=== PATIENT | male | born 1930 | race Caucasian/White ===

== ENCOUNTER 2018-02-09 10:14 | Outpatient (CLI) | payer MEDICARE ==
[2018-02-09 12:50] LABS: BASOPHILS % (AUTO) 0.5 %; EOSINOPHILS # (AUTO) 0.2 10^3/uL (0.0-0.7); EOSINOPHILS % (AUTO) 2.6 %; HGB - HEMOGLOBIN 14.6 g/dL (14.0-18.0); LYMPHOCYTES # (AUTO) 1.9 10^3/uL (1.5-3.5); LYMPHOCYTES % (AUTO) 24.3 %; MEAN CORPUSCULAR HEMOGLOBIN 30.9 pg (27.0-31.0); MEAN CORPUSCULAR VOLUME 93.4 fL (80.0-94.0); MEAN PLATELET VOLUME 8.5 fL (7.4-11.4); MONOCYTES # (AUTO) 0.7 10^3/uL (0.0-1.0); MONOCYTES % (AUTO) 8.9 %; NEUTROPHILS % (AUTO) 63.7 %; PLT - PLATELET COUNT 288 10^3/uL (130-450); RED BLOOD COUNT 4.74 10^6/uL (4.70-6.10); RED CELL DISTRIBUTION WIDTH 13.9 % (12.0-15.0); WHITE BLOOD COUNT 7.9 x10^3/uL (4.8-10.8)
[2018-02-09 13:16] LABS: ALBUMIN 4.2 g/dL (3.2-5.5); ALBUMIN/GLOBULIN RATIO 1.2 (1.0-2.2); ALKALINE PHOSPHATASE 54 IU/L (42-121); ALT ALANINE AMINOTRANSFERASE 20 IU/L (10-60); AST ASPARTATE AMINOTRANSFERASE 24 IU/L (10-42); BILIRUBIN,TOTAL 0.8 mg/dL (0.2-1.0); BUN - BLOOD UREA NITROGEN 15 mg/dL (6-20); CARBON DIOXIDE - CO2 28 mmol/L (21-32); CHLORIDE 98 mmol/L (101-111); CHOL/HDL RATIO 5.1 (<5.0); CHOLESTEROL 215 mg/dL; CREATININE 0.9 mg/dL (0.6-1.2); GFR - MDRD 80 (>89); GLUCOSE 93 mg/dL (70-100); HDL CHOLESTEROL 42 mg/dL; LDL CHOLESTEROL,CALCULATED 152 mg/dL; LDL/HDL RATIO 3.6 (<3.6); SODIUM 134 mmol/L (135-145); TOTAL PROTEIN 7.6 g/dL (6.7-8.2); VLDL CHOLESTEROL 21 mg/dL
== END 2018-02-09 10:15 | disposition home or self-care (01) ==
LOC: LAB.WCP 10:14
PROVIDERS: ATTEND Family Medicine
DX: I10 Essential (primary) hypertension (principal); E78.5 Hyperlipidemia, unspecified
CPT/HCPCS: 36415; 80053; 80061; 83721; 85025

== ENCOUNTER 2018-07-15 09:16 | Outpatient (CLI) | payer MEDICARE | END 2018-07-15 09:17 | disposition critical access hospital (66) | LOC: EMS 09:16 | PROVIDERS: ATTEND Surgery | DX: R42 Dizziness and giddiness (principal) | CPT/HCPCS: A0425; A0427 ==

== ENCOUNTER 2018-07-15 09:46 | Emergency (ER) | payer MEDICARE ==
--- NOTE | 2018-07-15 10:00 | ED Physician Documentation ---
History of Present Illness - Stated complaint Stated Complaint: DIZZY - History obtained from History obtained from: Patient, Family, EMS - History of Present Illness Timing: Enter time (399), Today - Additonal information Additional information: 88 year old male was in his usual state of health when he went to bed last night. He awoke at 4:00 in the morning to go to the bathroom and felt extremely dizzy. He felt out of sorts when he arrived back to his bed as well he is noted his blood pressure to be markedly elevated today he is come to the emergency department for evaluation. He did come in by ambulance. Review of Systems Constitutional: denies: Fever Eyes: denies: Decreased vision Ears: denies: Ear pain Nose: denies: Rhinorrhea / runny nose, Congestion Throat: denies: Sore throat Cardiac: denies: Chest pain / pressure, Palpitations Respiratory: denies: Dyspnea, Cough GI: denies: Abdominal Pain, Nausea, Vomiting : denies: Dysuria, Frequency Skin: denies: Rash, Lesions Musculoskeletal: denies: Neck pain, Back pain, Extremity pain Neurologic: reports: Near syncope, Headache. denies: Generalized weakness, Focal weakness, Numbness, Difficulty speaking, Head injury, LOC PD PAST MEDICAL HISTORY - Present Medications Home Medications: Ambulatory Orders Medication Instructions Recorded Confirmed Aspirin [Adult Aspirin] 81 mg PO DAILY PM 07/15/18 07/15/18 Atenolol 25 mg PO DAILY PM 07/15/18 07/15/18 Atenolol [Atenolol] 50 mg PO DAILY 07/15/18 07/15/18 Meclizine HCl 25 mg PO Q6HR PRN #20 tab.chew 07/15/18 Simvastatin [Simvastatin] 10 mg PO DAILY PM 07/15/18 07/15/18 amLODIPine [Norvasc] 2.5 mg PO DAILY 07/15/18 07/15/18 - Allergies Allergies/Adverse Reactions: Allergies Allergy/AdvReac Type Severity Reaction Status Date / Time No Known Drug Allergies Allergy Verified 07/15/18 11:04 PD ED PE NORMAL - Vitals Vital signs reviewed: Yes - General General: Alert and oriented X 3, No acute distress, Well developed/nourished - HEENT HEENT: Atraumatic, PERRL, EOMI, Ears normal, Other (dry mucous membranes 2 beats of nystagmus to the left only ) - Neck Neck: Supple, no meningeal sign, No bony TTP - Cardiac Cardiac: RRR, No murmur - Respiratory Respiratory: No respiratory distress, Clear bilaterally - Abdomen Abdomen: Soft, Non tender - Back Back: No CVA TTP, No spinal TTP - Derm Derm: Normal color, Warm and dry, No rash - Extremities Extremities: No deformity, No edema - Neuro Neuro: Alert and oriented X 3, title curator 2-12 intact, No motor deficit, No sensory deficit, Normal speech Eye Opening: Spontaneous Motor: Obeys Commands Verbal: Oriented GCS Score: 15 - Psych Psych: Normal mood, Normal affect Results - Vitals Vitals: Vital Signs - 24 hr 07/15/18 07/15/18 10:00 12:16 Temperature 36.4 C L Heart Rate 54 L 61 Respiratory 16 20 Rate Blood Pressure 102/90 H 192/84 H O2 Saturation 96 98 Oxygen O2 Source Room air - EKG (time done) 1005 Rate: Rate (enter#) (55) Rhythm: NSR Ischemia: Q waves (inferior) Compare to prior EKG: Old EKG unavailable Computer interpretation: Agree with computer - Labs Labs: Laboratory Tests 07/15/18 07/15/18 07/15/18 10:14 10:14 10:14 WBC 8.2 RBC 4.48 L Hgb 13.8 L Hct 41.7 L MCV 93.1 MCH 30.8 MCHC 33.1 RDW 13.7 Plt Count 240 MPV 8.0 Neut # (Auto) 6.0 Lymph # (Auto) 1.5 [place] # (Auto) 0.5 Eos # (Auto) 0.2 Baso # (Auto) 0.1 Absolute Nucleated RBC 0.00 Nucleated RBC % 0.0 Sodium 138 Potassium 4.3 Chloride 102 Carbon Dioxide 28 Anion Gap 8.0 BUN 10 Creatinine 0.9 Estimated GFR (MDRD) 80 L Glucose 106 H Calcium 9.1 Total Bilirubin 1.0 AST 20 ALT 14 Alkaline Phosphatase 60 Troponin I < 0.04 Total Protein 7.3 Albumin 4.0 Globulin 3.3 Albumin/Globulin Ratio 1.2 Lipase 31 Urine Color Urine Clarity Urine pH Ur Specific [place] Urine Protein Urine Glucose (UA) Urine Ketones Urine Occult Blood Urine Nitrite Urine Bilirubin Urine Urobilinogen Ur Leukocyte Esterase Ur Microscopic Review Urine Culture Comments 07/15/18 10:20 WBC RBC Hgb Hct MCV MCH MCHC RDW Plt Count MPV Neut # (Auto) Lymph # (Auto) [place] # (Auto) Eos # (Auto) Baso # (Auto) Absolute Nucleated RBC Nucleated RBC % Sodium Potassium Chloride Carbon Dioxide Anion Gap BUN Creatinine Estimated GFR (MDRD) Glucose Calcium Total Bilirubin AST ALT Alkaline Phosphatase Troponin I Total Protein Albumin Globulin Albumin/Globulin Ratio Lipase Urine Color YELLOW Urine Clarity CLEAR Urine pH 7.5 Ur Specific [place] 1.010 Urine Protein NEGATIVE Urine Glucose (UA) NEGATIVE Urine Ketones NEGATIVE Urine Occult Blood TRACE-INTA Urine Nitrite NEGATIVE Urine Bilirubin NEGATIVE Urine Urobilinogen 0.2 (NORMAL) Ur Leukocyte Esterase NEGATIVE Ur Microscopic Review NOT INDICATED Urine Culture Comments NOT INDICATED Procedures - IVC sono (time) 0955 Bedside IVC sono: IVC measures (cm) (1.19), IVC collapsed c insp (cm) (complete) 1235 Bedside IVC sono: IVC measures (cm) (1.44), IVC collapsed c insp (cm) (complete) , Dehydration (after one liter a deficit remains) PD MEDICAL DECISION MAKING - ED course Complexity details: reviewed results, re-evaluated patient, considered differential, d/w patient, d/w family ED course: 88-year-old male with acute dizziness is found to be dehydrated. He is administered a liter of saline and he continues to have a deficit and symptoms and he is administered a second liter of saline. - Sepsis Event Vital Signs: Vital Signs - 24 hr 07/15/18 07/15/18 10:00 12:16 Temperature 36.4 C L Heart Rate 54 L 61 Respiratory 16 20 Rate Blood Pressure 102/90 H 192/84 H O2 Saturation 96 98 Oxygen O2 Source Room air Departure - Departure Disposition: 01 Home, Self Care Clinical Impression: Dehydration Labyrinthitis Qualifiers: Laterality: bilateral Qualified Code(s): H83.03 - Labyrinthitis, bilateral Condition: Stable Instructions: ED Dehydration Follow-Up: Lori Guzman MD [Primary Care Provider] - Prescriptions: Meclizine HCl 25 mg PO Q6HR PRN #20 tab.chew PRN Reason: Dizziness
[2018-07-15] MEDS ORDERED: SODIUM CHLORIDE 0.9% 1,000 ML IV ONE ×2 (10:13→12:37)
[2018-07-15 10:20] LABS: BASOPHILS # (AUTO) 0.1 10^3/uL (0.0-0.1); BASOPHILS % (AUTO) 0.9 %; EOSINOPHILS # (AUTO) 0.2 10^3/uL (0.0-0.7); EOSINOPHILS % (AUTO) 2.1 %; HGB - HEMOGLOBIN 13.8 g/dL (14.0-18.0); LYMPHOCYTES # (AUTO) 1.5 10^3/uL (1.5-3.5); LYMPHOCYTES % (AUTO) 18.1 %; MEAN CORPUSCULAR HEMOGLOBIN 30.8 pg (27.0-31.0); MEAN CORPUSCULAR HGB CONC 33.1 g/dL (32.0-36.0); MEAN CORPUSCULAR VOLUME 93.1 fL (80.0-94.0); MONOCYTES # (AUTO) 0.5 10^3/uL (0.0-1.0); MONOCYTES % (AUTO) 6.4 %; NEUTROPHILS % (AUTO) 72.5 %; PLT - PLATELET COUNT 240 10^3/uL (130-450); RED BLOOD COUNT 4.48 10^6/uL (4.70-6.10); RED CELL DISTRIBUTION WIDTH 13.7 % (12.0-15.0); WHITE BLOOD COUNT 8.2 x10^3/uL (4.8-10.8)
[2018-07-15 10:28] LABS: BILIRUBIN,URINE NEGATIVE (NEGATIVE); GLUCOSE, URINE (UA) NEGATIVE (NEGATIVE); KETONES,URINE (UA) NEGATIVE (NEGATIVE); LEUKOCYTE ESTERASE, URINE NEGATIVE (NEGATIVE); NITRITE,URINE NEGATIVE (NEGATIVE); OCCULT BLOOD,URINE TRACE-INTA (NEGATIVE); PH,URINE 7.5 PH (5.0-7.5); PROTEIN,URINE NEGATIVE (NEGATIVE); UROBILINOGEN,URINE 0.2 (NORMAL) E.U./dL (NORMAL)
[2018-07-15 10:35] LABS: CLARITY,URINE CLEAR (CLEAR)
[2018-07-15 10:46] LABS: ALBUMIN/GLOBULIN RATIO 1.2 (1.0-2.2); CALCIUM 9.1 mg/dL (8.5-10.3); CREATININE 0.9 mg/dL (0.6-1.2); TOTAL PROTEIN 7.3 g/dL (6.7-8.2)
[2018-07-15] MEDS ORDERED: MECLIZINE 12.5 MG TABLET PO STA (14:23)
[2018-07-15 14:37] VITALS: BP 193/97
== END 2018-07-15 14:38 | disposition home or self-care (01) ==
LOC: EDUNIT# → ED 09:46
DX: E86.0 Dehydration (principal); H83.03 Labyrinthitis, bilateral; R94.31 Abnormal electrocardiogram [ECG] [EKG]
CPT/HCPCS: 36415; 80053; 81001; 81003; 83690; 84484; 85025; 87086; 93005; 96360; 96361; 99284

== ENCOUNTER 2019-07-29 08:00 | Outpatient (CLI) | payer MEDICARE ==
--- NOTE | 2019-07-30 08:41 | XRAY Report ---
Reason: CELLULITIS Procedure Date: 07/29/2019 Accession Number: [id number] / [id number] Procedure: WCP - Foot 3 View LT CPT Code: FULL RESULT: EXAM: LEFT FOOT RADIOGRAPHY EXAM DATE: 07/29/2019 08:50 AM. CLINICAL HISTORY: Cellulitis. COMPARISON: None. TECHNIQUE: 3 views. FINDINGS: Bones: The toes are flexed on all views. The toes are partially off the field of view of the lateral exam. Borderline hammertoe of the first ray. Previous bunion repair. Moderate to severe narrowing of the first metatarsophalangeal articulation. The articulations of the midfoot, and the second through fourth metatarsophalangeal articulations appear within normal limits. The articulations of the second through fourth toes appear grossly within normal limits. No focal lytic changes. No subluxation or fracture detected. Joints: Normal. No subluxations. Soft Tissues: No subcutaneous radiopaque foreign bodies. IMPRESSION: No acute-appearing bony processes detected. Previous bunion repair. RADIA
== END 2019-07-29 23:59 | disposition home or self-care (01) ==
LOC: DI.WCP 08:00 → EDSTATUS 13:30 → DI.WCP 23:59
PROVIDERS: ATTEND Family Medicine
DX: L03.90 Cellulitis, unspecified (principal)

== ENCOUNTER 2019-07-29 08:00 | Outpatient (CLI) | payer MEDICARE ==
[2019-07-29 12:40] LABS: BASOPHILS % (AUTO) 0.5 %; EOSINOPHILS # (AUTO) 0.2 10^3/uL (0.0-0.7); EOSINOPHILS % (AUTO) 2.6 %; LYMPHOCYTES # (AUTO) 1.7 10^3/uL (1.5-3.5); LYMPHOCYTES % (AUTO) 20.1 %; MEAN CORPUSCULAR HEMOGLOBIN 30.4 pg (27.0-31.0); MEAN CORPUSCULAR HGB CONC 31.9 g/dL (32.0-36.0); MEAN CORPUSCULAR VOLUME 95.1 fL (80.0-94.0); MEAN PLATELET VOLUME 10.7 fL (7.4-11.4); MONOCYTES # (AUTO) 0.6 10^3/uL (0.0-1.0); MONOCYTES % (AUTO) 7.6 %; NEUTROPHILS # (AUTO) 5.8 10^3/uL (1.5-6.6); PLT - PLATELET COUNT 288 10^3/uL (130-450); RED BLOOD COUNT 4.28 10^6/uL (4.70-6.10); RED CELL DISTRIBUTION WIDTH 13.6 % (12.0-15.0); WHITE BLOOD COUNT 8.4 x10^3/uL (4.8-10.8)
[2019-07-29 13:17] LABS: ALBUMIN 3.7 g/dL (3.2-5.5); ALBUMIN/GLOBULIN RATIO 1.1 (1.0-2.2); ALKALINE PHOSPHATASE 60 IU/L (42-121); ALT ALANINE AMINOTRANSFERASE 19 IU/L (10-60); AST ASPARTATE AMINOTRANSFERASE 21 IU/L (10-42); BILIRUBIN,TOTAL 0.8 mg/dL (0.2-1.0); BUN - BLOOD UREA NITROGEN 15 mg/dL (6-20); CALCIUM 8.7 mg/dL (8.5-10.3); CARBON DIOXIDE - CO2 27 mmol/L (21-32); CHLORIDE 104 mmol/L (101-111); CREATININE 0.8 mg/dL (0.6-1.2); GFR - MDRD 91 (>89); GLUCOSE 100 mg/dL (70-100); SODIUM 138 mmol/L (135-145); TOTAL PROTEIN 7.2 g/dL (6.7-8.2); URIC ACID 5.3 mg/dL (2.6-7.2)
[2019-07-29 13:21] LABS: CRP - C-REACTIVE PROTEIN < 1.0 mg/dL (0-1.0)
[2019-07-29 13:25] LABS: RHEUMATOID FACTOR NEGATIVE (Negative)
[2019-07-31 15:11] LABS: ANA SCREEN NEGATIVE (NEGATIVE)
== END 2019-07-29 23:59 | disposition home or self-care (01) ==
LOC: LAB.WCP 08:00
PROVIDERS: ATTEND Family Medicine
DX: L03.90 Cellulitis, unspecified (principal); I10 Essential (primary) hypertension; K27.9 Peptic ulcer, site unspecified, unspecified as acute or chronic, without hemorrhage or perforation
CPT/HCPCS: 36415; 80053; 84550; 85025; 85651; 86038; 86140; 86200; 86430

== ENCOUNTER 2020-05-14 23:59 | Outpatient (CLI) | payer MEDICARE | END 2020-05-15 | disposition critical access hospital (66) | LOC: EMS 23:59 | PROVIDERS: ATTEND Surgery | DX: R47.9 Unspecified speech disturbances (principal); R29.810 Facial weakness; R53.1 Weakness | CPT/HCPCS: A0425; A0429 ==

== ENCOUNTER 2020-05-15 00:17 | Emergency (ER) | payer MEDICARE ==
[2020-05-15 00:57] LABS: BILIRUBIN,URINE NEGATIVE (NEGATIVE); GLUCOSE, URINE (UA) NEGATIVE (NEGATIVE); KETONES,URINE (UA) NEGATIVE (NEGATIVE); LEUKOCYTE ESTERASE, URINE NEGATIVE (NEGATIVE); NITRITE,URINE NEGATIVE (NEGATIVE); OCCULT BLOOD,URINE TRACE-INTA (NEGATIVE); PH,URINE 7.5 PH (5.0-7.5); PROTEIN,URINE NEGATIVE (NEGATIVE); UROBILINOGEN,URINE 0.2 (NORMAL) E.U./dL (NORMAL)
[2020-05-15 00:58] LABS: CLARITY,URINE CLEAR (CLEAR)
[2020-05-15] MEDS ORDERED: IOVERSOL 320 100 ML VIAL IVP ONE ×2 (01:07→01:56)
[2020-05-15 01:08] LABS: BASOPHILS # (AUTO) 0.1 10^3/uL (0.0-0.1); BASOPHILS % (AUTO) 0.5 %; EOSINOPHILS # (AUTO) 0.4 10^3/uL (0.0-0.7); EOSINOPHILS % (AUTO) 4.2 %; HGB - HEMOGLOBIN 13.6 g/dL (14.0-18.0); LYMPHOCYTES # (AUTO) 2.3 10^3/uL (1.5-3.5); LYMPHOCYTES % (AUTO) 24.1 %; MEAN CORPUSCULAR HEMOGLOBIN 31.3 pg (27.0-31.0); MEAN CORPUSCULAR VOLUME 94.9 fL (80.0-94.0); MEAN PLATELET VOLUME 9.6 fL (7.4-11.4); MONOCYTES % (AUTO) 10.4 %; NEUTROPHILS # (AUTO) 5.8 10^3/uL (1.5-6.6); NEUTROPHILS % (AUTO) 60.5 %; PLT - PLATELET COUNT 230 10^3/uL (130-450); RED BLOOD COUNT 4.34 10^6/uL (4.70-6.10); RED CELL DISTRIBUTION WIDTH 13.3 % (12.0-15.0); WHITE BLOOD COUNT 9.5 x10^3/uL (4.8-10.8)
[2020-05-15 01:20] LABS: ALBUMIN/GLOBULIN RATIO 1.1 (1.0-2.2); BILIRUBIN,TOTAL 0.5 mg/dL (0.2-1.0); CALCIUM 8.8 mg/dL (8.5-10.3); CREATININE 0.6 mg/dL (0.6-1.2); TOTAL PROTEIN 7.5 g/dL (6.7-8.2)
--- NOTE | 2020-05-15 01:28 | ED Physician Documentation ---
PD HPI FOCAL NEURO - Stated complaint Stated Complaint: STROKE - Chief complaint Chief Complaint: Neuro - History obtained from History obtained from: Patient, Family, EMS - History of Present Illness Timing - onset: Enter time (2244), Today Timing - duration: Minutes Timing - details: Abrupt onset, Still present Severity of deficit: Moderate Weakness: Face, Arm, Hand, Leg, Right Associated symptoms: Other (blank stare and aphasia). No: Headache, Nausea / vomiting, Seizure, Syncope, Fall, Head injury, Chest pain, Neck pain, Back pain, Fever Contributing factors: positive: Vascular dz Baseline status: positive: A&OX3, ambulatory, indep Similar symptoms before: Has not had sx before Recently seen: Not recently seen - Additional information Additional information: 89-year-old male has slowed down in the past week and his noted this evening he got up to go to the table and she noted he had a blank stare on his face and he spilled his coffee and crashed into the table. He did not injure himself. Review of Systems Constitutional: denies: Fever Eyes: denies: Decreased vision Ears: denies: Ear pain Nose: denies: Rhinorrhea / runny nose, Congestion Throat: denies: Sore throat Cardiac: denies: Chest pain / pressure, Palpitations Respiratory: denies: Dyspnea, Cough GI: denies: Abdominal Pain, Nausea, Vomiting, Constipation, Diarrhea : denies: Dysuria, Frequency Skin: denies: Rash Musculoskeletal: denies: Neck pain, Back pain, Extremity pain Neurologic: reports: Generalized weakness, Focal weakness, Difficulty speaking, Other ( indicates that for the past week the patient has slowed his activity.). denies: Head injury, LOC PD PAST MEDICAL HISTORY - Past Medical History Past Medical History: Yes Cardiovascular: Hypertension Respiratory: None Neuro: None Endocrine/Autoimmune: None GI: GI bleed, Chronic constipation, Diverticulitis : None HEENT: None Psych: None Musculoskeletal: None Derm: None - Past Surgical History Past Surgical History: Yes General: EGD Ortho: Other - Present Medications Home Medications: Ambulatory Orders Medication Instructions Recorded Confirmed Aspirin [Adult Aspirin] 81 mg PO DAILY PM 07/15/18 05/15/20 Meclizine HCl 25 mg PO Q6HR PRN #20 tab.chew 07/15/18 Simvastatin 10 mg PO DAILY PM 07/15/18 05/15/20 amLODIPine [Norvasc] 2.5 mg PO DAILY 07/15/18 05/15/20 atenoloL [Atenolol] 25 mg PO DAILY PM 07/15/18 05/15/20 atenoloL [Atenolol] 50 mg PO DAILY 07/15/18 05/15/20 - Allergies Allergies/Adverse Reactions: Allergies Allergy/AdvReac Type Severity Reaction Status Date / Time No Known Drug Allergies Allergy Verified 05/15/20 00:28 - Social History Does the pt smoke?: No Smoking Status: Never smoker Does the pt drink ETOH?: Yes Does the pt have substance abuse?: No - Immunizations Immunizations are current?: Yes Immunizations: TDAP current <10years, Other immun current PD ED PE NORMAL - Vitals Vital signs reviewed: Yes (hypertensive ) - General General: No acute distress, Well developed/nourished, Other (alter and interactive with pooor vocalization ) - HEENT HEENT: Atraumatic, PERRL, EOMI - Neck Neck: Supple, no meningeal sign, No bony TTP, No JVD, No bruit - Cardiac Cardiac: RRR, No murmur - Respiratory Respiratory: No respiratory distress, Clear bilaterally - Abdomen Abdomen: Soft, Non tender - Back Back: No CVA TTP, No spinal TTP - Derm Derm: Normal color, Warm and dry, No rash - Extremities Extremities: No deformity, No edema, No calf tenderness / cord - Neuro Neuro: Alert and oriented X 3, superintendent recreation 2-12 intact, No motor deficit, No sensory deficit, Other (speech is dysarthric and there is word searching. ) Eye Opening: Spontaneous Motor: Obeys Commands Verbal: Oriented GCS Score: 15 - Psych Psych: Normal mood, Normal affect NIHSS - Time Time: 00:32 - Level of Consciousness Level of consciousness: (0) Alert, Keenly responsive LOC Questions: (0) Answers both Q's correct LOC Commands: (0) Performs both correctly - Gaze Best Gaze: (0) Normal - Visual Visual: (0) No loss - Facial Palsy Facial Palsy: (1) Minor paralysis - Motor Arms (both separate) Motor Arm (right): (0) No drift Motor Arm (left): (0) No drift - Motor Legs (both separate) Motor Leg (right): (0) No drift Motor Leg (left): (3) No effort against gravity - Limb Ataxia Limb Ataxia: (0) Absent - Sensory Sensory: (0) Normal - Best Language Best Language: (2) Severe aphasia - Dysarthria Dysarthria: (2) Severe dysarthria - Extinction and Inattention (formally neg Extinction and inattention: (1) Visual,tactile,auditory,spatial, or personal inattention - Total Score/Results Total Score/Result: 9 Results - Vitals Vitals: Vital Signs - 24 hr 05/15/20 05/15/20 05/15/20 00:25 00:48 01:05 Temperature 36.6 C Heart Rate 65 55 L Respiratory 20 17 Rate Blood Pressure 167/95 H 192/91 H 175/89 H O2 Saturation 93 96 05/15/20 05/15/20 05/15/20 01:15 01:31 02:06 Temperature Heart Rate 54 L 55 L 55 L Respiratory 18 19 21 Rate Blood Pressure 181/84 H 181/84 H 172/76 H O2 Saturation 97 100 99 05/15/20 05/15/20 02:22 02:38 Temperature Heart Rate 56 L 56 L Respiratory 15 21 Rate Blood Pressure 168/88 H 191/86 H O2 Saturation 95 97 Oxygen O2 Source Room air - EKG (time done) 00:44 Rate: Rate (enter#) (56) Rhythm: NSR Ischemia: Q waves Compare to prior EKG: Unchanged from prior EKG (SPT 07-15-2018) Computer interpretation: Disagree with computer (The computer erroneously assigns the MA interval as .61 when it is infact 1.2) - Labs Labs: Laboratory Tests 05/15/20 05/15/20 05/15/20 00:52 00:58 00:58 WBC 9.5 RBC 4.34 L Hgb 13.6 L Hct 41.2 L MCV 94.9 H MCH 31.3 H MCHC 33.0 RDW 13.3 Plt Count 230 MPV 9.6 Neut # (Auto) 5.8 Lymph # (Auto) 2.3 [place] # (Auto) 1.0 Eos # (Auto) 0.4 Baso # (Auto) 0.1 Absolute Nucleated RBC 0.00 Nucleated RBC % 0.0 Sodium 132 L Potassium 3.9 Chloride 97 L Carbon Dioxide 25 Anion Gap 10.0 BUN 14 Creatinine 0.6 Estimated GFR (MDRD) 127 Glucose 121 H Lactic Acid Calcium 8.8 Total Bilirubin 0.5 AST 20 ALT 18 Alkaline Phosphatase 75 Total Protein 7.5 Albumin 4.0 Globulin 3.5 Albumin/Globulin Ratio 1.1 Lipase 45 Urine Color YELLOW Urine Clarity CLEAR Urine pH 7.5 Ur Specific [place] 1.010 Urine Protein NEGATIVE Urine Glucose (UA) NEGATIVE Urine Ketones NEGATIVE Urine Occult Blood TRACE-INTA Urine Nitrite NEGATIVE Urine Bilirubin NEGATIVE Urine Urobilinogen 0.2 (NORMAL) Ur Leukocyte Esterase NEGATIVE Ur Microscopic Review NOT INDICATED Urine Culture Comments NOT INDICATED 05/15/20 00:58 WBC RBC Hgb Hct MCV MCH MCHC RDW Plt Count MPV Neut # (Auto) Lymph # (Auto) [place] # (Auto) Eos # (Auto) Baso # (Auto) Absolute Nucleated RBC Nucleated RBC % Sodium Potassium Chloride Carbon Dioxide Anion Gap BUN Creatinine Estimated GFR (MDRD) Glucose Lactic Acid < 0.3 L Calcium Total Bilirubin AST ALT Alkaline Phosphatase Total Protein Albumin Globulin Albumin/Globulin Ratio Lipase Urine Color Urine Clarity Urine pH Ur Specific [place] Urine Protein Urine Glucose (UA) Urine Ketones Urine Occult Blood Urine Nitrite Urine Bilirubin Urine Urobilinogen Ur Leukocyte Esterase Ur Microscopic Review Urine Culture Comments - Rads (name of study) CTA neck Radiology: Prelim report reviewed (Impression: 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 Thrombus noted left internal carotid artery from skull base through the carotid siphon to just proximal to the bifurcation.), Discussed with rads, EMP read indepedently, See rad report CT head w/o Radiology: Prelim report reviewed (Impression: Chronic disease without acute process.), EMP read indepedently, See rad report Procedures - IVC sono (time) 0100 Bedside IVC sono: IVC measures (cm) (1.04), Dehydration (est 1-2 liter deficit) PD MEDICAL DECISION MAKING - ED course Complexity details: reviewed old records, reviewed results, re-evaluated patient, considered differential, d/w patient, d/w family, d/w health consultant (Joselyn Lu neurology at [facility] recommends tPA ) ED course: 89-year-old male with acute onset of right-sided deficit and aphasia at 2245 has improvement on arrival to the emergency department at midnight but continues to have a aphasia and mild right facial droop. He has continued improvement while he is here in the emergency department. He is found to have a large vessel occlusion in the left internal carotid that appears fresh. His case is discussed with Dr. Trinity Mckenzie who recommends administration of alteplase. She has consulted with the interventionalists and the recommendation is for transfer to ICU after tPA and re-evaluation for progression. Immediate intervention is not planned at this time. The patient and his have given consent for tPA after discussion of risks of bleeding and hemorrhagic transformation. Dr. Min Goldman the [place] triage DrWilliam approves the transfer of the patient and Dr. Brian Mejia is the accepting fire hazard inspector at [facility]. 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 Condition: Serious NIHSS - Level of Consciousness Level of consciousness: (0) Alert, Keenly responsive LOC Questions: (0) Answers both Q's correct LOC Commands: (0) Performs both correctly - Gaze Best Gaze: (0) Normal - Visual Visual: (0) No loss - Facial Palsy Facial Palsy: (1) Minor paralysis - Motor Arms (both separate) Motor Arm (right): (0) No drift Motor Arm (left): (0) No drift - Motor Legs (both separate) Motor Leg (right): (0) No drift Motor Leg (left): (0) No drift - Limb Ataxia Limb Ataxia: (0) Absent - Sensory Sensory: (0) Normal - Best Language Best Language: (1) [id number] - Dysarthria Dysarthria: (1) [id number] dysarthria - Extinction and Inattention (formally neg Extinction and inattention: (0) No abnormality - Total Score/Results Total Score/Result: 3
[2020-05-15] MEDS ORDERED: ALTEPLASE IV STA (01:49)
[2020-05-15] MEDS ORDERED: WATER FOR INJECTION STERILE IV STA (01:49)
[2020-05-15] MEDS ORDERED: ALTEPLASE 100 MG VIAL ONE (02:07)
[2020-05-15 02:39] VITALS: BP 191/86
--- NOTE | 2020-05-15 08:42 | CT Report ---
PROCEDURE: ANGIO HEAD W/WO INDICATIONS: right sided facial droop, aphasia/dysarthria CONTRAST: IV CONTRAST: Optiray 320 ml: 100 PO CONTRAST: *NO PO CONTRAST TECHNIQUE: Precontrast 4.5 mm thick angled axial sections acquired from the foramen magnum to the vertex. Afte r the administration of intravenous contrast, 1 mm thick sections acquired through the [place] of [place] is. Postcontrast 4.5 mm thick sections then re-acquired from the foramen magnum to the vertex. 3-di mensional cyjdznh-zztkumbyb-wluzdzpmzu (MIP) and/or volume rendering reformats were acquired of the c entral intracranial vasculature. For radiation dose reduction, the following was used: automated ex posure control, adjustment of mA and/or kV according to patient size. COMPARISON: CT angiography neck 05/15/2020 FINDINGS: Image quality: Excellent. Anterior circulation: The anterior circulation, including the anterior and middle cerebral arteries demonstrates no areas of hemodynamically significant stenosis, vascular occlusion or aneurysmal dilat ion. There is moderate stenosis of the supraclinoid portions of the internal carotid arteries bilater ally. There is appearance of filling defect most suggestive of thrombus within the left internal vega tid artery most prominent within the petrous portion, extending the cavernous portion/carotid siphon with approximately 65% narrowing at the greatest portion. Posterior circulation: The posterior circulation demonstrates vertebral artery codominance. There is significant calcification within the distal vertebral arteries bilaterally with focal high-grade kanwal nosis. In addition, there is a focal high-grade stenosis with poststenotic dilatation at the vertebro basilar junction on the right. Focal high-grade stenosis measuring approximately 67% is present at th e proximal basilar artery immediately distal to the vertebral basilar junction. The posterior cerebra l arteries demonstrate no areas of hemodynamically significant stenosis, vascular occlusion or aneury smal dilation. Posterior communicating arteries are within normal limits. The ventricular system and cortical sulci demonstrate atrophy, consistent for patient's stated age. There are areas of hypodensity in the periventricular and subcortical white matter. There is no acut e intra or extra-axial fluid collection. No acute hemorrhage, mass lesion or midline shift. Brainst em is unremarkable. Globes are symmetrical. Sinuses are aerated. Osseous structures are intact. IMPRESSION: 1. No visualized acute ischemia. However, MRI brain is recommended for further evaluation given belo w vascular findings. 2. Moderate atrophy and chronic microvascular ischemic changes. 3. Bilateral areas of high-grade stenosis within the distal vertebral arteries with calcification. In addition, high-grade stenosis is noted at the right vertebral basilar junction with poststenotic dil atation. 4. Filling defect suggestive of acute/subacute thrombus within the petrous portion of the left inter nal carotid artery extending to the cavernous/carotid siphon with approximate 65% narrowing. The above findings are concordant with preliminary report. Reviewed by: Shonda Fraser MD on 05/15/2020 8:41 AM PDT Approved by: Shonda Fraser MD on 05/15/2020 8:41 AM PDT Station ID: [id number]
--- NOTE | 2020-05-15 09:27 | CT Report ---
PROCEDURE: ANGIO NECK W INDICATIONS: right sided facial droop, aphasia/dysarthria CONTRAST: IV CONTRAST: Optiray 320 ml: 100 PO CONTRAST: *NO PO CONTRAST TECHNIQUE: After the administration of intravenous contrast, 1.5 mm axial sections acquired from the aortic arch to the [place] of [place]. Coronal 3-D maximum intensity projection (MIP) and/or volume rendering ref ormats were then performed. For radiation dose reduction, the following was used: automated exposur e control, adjustment of mA and/or kV according to patient size. COMPARISON: CT angiogram head 05/15/2020 FINDINGS: Image quality: Excellent. The origins of the left and right common carotid arteries demonstrate no areas of hemodynamically sig nificant stenosis, vascular occlusion or aneurysmal dilation. Origin of the left vertebral artery and right vertebral artery demonstrate no areas of hemodynamically significant stenosis, vascular occlus ion or aneurysmal dilation. There is less than 50% stenosis secondary to calcifications at the origin of the right internal carot id artery. Right external carotid artery is widely patent. There is decreased luminal opacification a t the origin of the left internal carotid artery extending approximately 3 cm distally. There is near complete occlusion at the origin of this region, approximate 50% within the midportion and near comp lete occlusion again identified within the distal segment. Thrombus is also identified extending into a 1.3 segment proximal portion of the left external carotid artery. In addition, there are visualized portions of thrombus appearing occlusion within more distal segment s of the internal carotid artery, better detailed on the CT a head examination of 05/15/2020. Aortic arch demonstrates conventional anatomy. 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 Limited, visualized portions of the subclavian vasculature are unremarkable. IMPRESSION: 1. Acute/subacute appearing thrombus within the proximal portion of the left internal carotid artery with extension into the proximal left external carotid artery. Given vascular appearance, MRI brain i s recommended for further evaluation of acute/subacute ischemia. 2. Acute/subacute thrombus appearing within the more distal portions of the left internal carotid art estephania. Please see CT head report for full details. The estimate of stenosis included in the report of the imaging study was calculated using the NASCET method The above findings are concordant with preliminary report. Reviewed by: Shonda Fraser MD on 05/15/2020 9:25 AM PDT Approved by: Shonda Fraesr MD on 05/15/2020 9:25 AM PDT Station ID: [id number]
== END 2020-05-15 02:44 | disposition short-term general hospital (02) ==
LOC: EDUNIT# → ED 00:17
DX: I63.032 Cerebral infarction due to thrombosis of left carotid artery (principal); R47.01 Aphasia; R29.810 Facial weakness; R29.709 NIHSS score 9; E86.0 Dehydration; I10 Essential (primary) hypertension; Z79.82 Long term (current) use of aspirin
CPT/HCPCS: 36415; 37195; 70496; 70498; 80053; 81003; 83605; 83690; 85025; 87040; 93005; 99285; J2997; Q9967; 81001; 87086; 96374